=== PATIENT | female | born 1955 | race Caucasian/White ===

== ENCOUNTER 2016-07-06 08:57 | Outpatient (CLI) | payer OTHER, MEDICARE ==
[~2016-07-06] VITALS: Ht 160.1 cm; Wt 75.0 kg
[~2016-07-06 08:57] MED LIST: AMBIEN 5MG TABLE5 MG PO; COLCRYS0.6 MG PO; FERROUS SULFATE65 MG PO; FOLIC ACID 11 MG/TA1 PO; IMDUR 30MG30 MG/TAB PO; NEPHROCAP PO; NORCO 325 MG-51 TAB PO; NORVASC 5MG5 MG/TAB PO; PROFERRIN ES12 MG PO; TENORMIN 2525 MG/TAB PO; TYLENOL 500MG500 MG PO; VITAMIN C500 MG PO; ZESTRIL 20MG TA20 MG PO; ZYLOPRIM 100MG100 MG PO
[2016-07-06 09:14] VITALS: BP 94/50; PULSE 60; TEMP 97
[2016-07-06] MEDS ORDERED: PHOS LO PO (09:24)
[2016-07-06] MEDS ORDERED: ROCALTROL0.5 MCG PO (09:25)
[2016-07-06 11:37] VITALS: BP 96/58; PULSE 62
== END 2016-07-06 12:55 | disposition home or self-care (01) ==
LOC: EUO 08:57 → COL.RAD 09:00 → EUO 12:55
DX: N18.6 End stage renal disease (principal); T82.848A Pain due to vascular prosthetic devices, implants and grafts, initial encounter; Y83.8 Other surgical procedures as the cause of abnormal reaction of the patient, or of later complication, without mention of misadventure at the time of the procedure
CPT/HCPCS: C1894; J7120; Q9967

== ENCOUNTER 2018-12-12 10:31 | Outpatient (CLI) | payer MEDICARE ==
[2018-12-12] VITALS (9 sets, daily range): BP systolic 118–144; BP diastolic 65–78; PULSE 60–66
[~2018-12-12] VITALS: Ht 160 cm; Wt 68.0 kg
[~2018-12-12 10:31] MED LIST changes: +AMBIEN 10MG10 MG PO; -AMBIEN 5MG TABLE5 MG PO; +PHOS LO PO; +ROCALTROL0.5 MCG PO
[2018-12-12] MEDS ORDERED: LOPRESSOR 225 MG/TAB PO (11:15)
[2018-12-12] MEDS ORDERED: LOSARTAN PO (11:17)
[2018-12-12] MEDS ORDERED: VELPHORO PO (12:02)
--- NOTE | 2018-12-12 12:13 | NUR ---
Pt brought med list from .Per pt she is taking metoprolol not atenolol.Per pt she is also taking losartan,unknown dose.This nurse contacted Dr andre office for updated list.Reviewed with pt.Several of home meds on office list pt reports she is no longer taking.Requested pt to take today's med list home and compare with her home prescription bottles.Pt verbalizes understanding.
--- NOTE | 2018-12-12 12:35 | NUR ---
Pt to procedure,report to Luis Saucedo.
--- NOTE | 2018-12-12 12:49 | NUR ---
ALL MEDICATIONS GIVEN VORB WITH MD. SEE MERGE FOR ALL MEDICATION ADMIN TIMES. SEE MERGE FOR ALL RASS ASSESSMENTS DURING AND POST PROCEDURE.
--- NOTE | 2018-12-12 13:39 | NUR ---
Pt back from procedure, report received from Lewis RN, pt awake and alert, gcs 15, p,w,d, bandaid present to fistula, thrill palpated and bruit auscultated. pt is on room air. discharge is pending. is at bs.
--- NOTE | 2018-12-12 15:45 | NUR ---
Reviewed discharge instructions with pt and . Pt verbalizes understanding. Pt is awake and alert, denies any questions, needs at time of departure. moving well, steady gait, has had no oozing from fistula site. 22g saline lock dc'd, cath intact, pressure dressing applied. escorted to exit in a wheelchair, driving her home.
== END 2018-12-12 15:45 | disposition home or self-care (01) ==
LOC: COL.CAR 10:31
DX: T82.590A Other mechanical complication of surgically created arteriovenous fistula, initial encounter (principal); Z99.2 Dependence on renal dialysis
CPT/HCPCS: J1644; J2250; J3010; J7050; Q9967

== ENCOUNTER → 2019-10-04 | Outpatient (CLI) | payer MEDICARE ==
[~2019-10-04] MED LIST changes: +LOPRESSOR 225 MG/TAB PO; +LOSARTAN PO; +VELPHORO PO
== END ==
LOC: COL.LAB 09:12
DX: Z20.828 Contact with and (suspected) exposure to other viral communicable diseases (principal)

== ENCOUNTER → 2020-05-13 | Outpatient (CLI) | payer MEDICARE ==
[~2020-05-13] MED LIST changes: +ANTACID500 M1 PO; +COZAAR 25MG25 MG/TAB PO; +NORVASC 10MG10 MG PO; +PAXIL 20MG20 MG PO; +PROTONIX 40MG T40 MG PO
== END ==
LOC: COL.RAD 05-02 10:30
DX: D35.1 Benign neoplasm of parathyroid gland (principal)

== ENCOUNTER 2020-05-28 13:06 | Outpatient (CLI) | payer MEDICARE ==
--- NOTE | 2020-05-23 13:02 | NUR ---
SPOKE TO PT AND GAVE INSTRUCTIONS. SHE WILL NOT BE ABLE TO DRINK ALL THE WATER SHE IS A DIALYSIS PT AND WILL HAVE DIALYSIS PRIOR TO COMING IN FOR PROCEDURE
[~2020-05-28] VITALS: Ht 160 cm; Wt 66.9 kg
[2020-05-28] VITALS (7 sets, daily range): BP systolic 137–176; BP diastolic 73–87; PULSE 69–76
[2020-06-02 07:43] LABS: CSF APPEARANCE CLEAR; CSF COLOR COLORLESS
[2020-06-02 07:44] LABS: CSF POLYMORPHONUCLEAR 3 % (0-6); CSF RBC 77 /mm3 (0-0)
[2020-06-02 07:45] LABS: CSF MONONUCLEAR 97 % (70-100); GLUCOSE,CSF 46 mg/dL (40-70); TOTAL PROTEIN,CSF 68 mg/dL (15-45)
[2020-06-04 08:06] LABS: ALBUMIN CSF SEE PCI; ALBUMUN SERUM SEE PCI; CSF IGG/ALBUMIN SEE PCI; CSF OLIG BD INTERPRETATION SEE PCI; CSF SYNTHESIS RATE SEE PCI; CSF,IGG SEE PCI; CSF-IGG INDEX SEE PCI; IGG,SERUM SEE PCI; IGG/ALBUMIN SERUM SEE PCI; SE OLIGOCLONAL BANDING SEE PCI
== END 2020-05-28 15:30 | disposition home or self-care (01) ==
LOC: COL.RAD 13:06
PROVIDERS: Psychiatry & Neurology Neurology
DX: G37.9 Demyelinating disease of central nervous system, unspecified (principal)

== ENCOUNTER 2020-06-03 10:29 | Outpatient (CLI) | payer MEDICARE ==
[2020-06-03] VITALS (8 sets, daily range): BP systolic 111–143; BP diastolic 60–77; PULSE 58–96; TEMP 98.6
[~2020-06-03] VITALS: Ht 160 cm; Wt 66.4 kg
--- NOTE | 2020-06-03 15:45 | NUR ---
Pt ready to go home, puncture to fistula remains covered with clean dry and intact bandaid, thrill palpable, cms intact to lue. Pt denies any questions about dc instructions, IV is dc'd with cath intact, dressing was applied. I ambulated with pt to exit where her was waiting.
== END 2020-06-03 16:27 | disposition home or self-care (01) ==
LOC: COL.CAR 10:29
DX: T82.898A Other specified complication of vascular prosthetic devices, implants and grafts, initial encounter (principal); I12.0 Hypertensive chronic kidney disease with stage 5 chronic kidney disease or end stage renal disease; N18.6 End stage renal disease; Z99.2 Dependence on renal dialysis; Z79.899 Other long term (current) drug therapy; Z20.822 Contact with and (suspected) exposure to COVID-19
CPT/HCPCS: C1769; J1644; Q9967